=== PATIENT | male | born 2000 | race Caucasian/White ===

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

== ENCOUNTER 2019-02-19 14:19 | Emergency (ER) | payer OTHER ==
[~2019-02-19] VITALS: Ht 172.7 cm; Wt 94.5 kg
[2019-02-19 14:24] VITALS: BP 154/94
[2019-02-19 15:00] VITALS: BP 154/94
--- NOTE | 2019-02-19 15:05 | NUR ---
PT BIB SELF WITH C/O RT TOE INGROWN NAIL. PAIN TO TOUCH AND WALKING. PAIN 10/10 AT THIS TIME. PT STATES UNABLE TO WEAR SHOE. CMS PRESENT, CAN MOVE HIS FINGERS. NO REDNESDSS OR SWELLING AT THE SITE. DENIES ANY FEVER, CHILL, NAUSEA OR VOMITING. ER MD TO SEE THE PT. WILL CONTINUE TO MONITOR PT.
--- NOTE | 2019-02-19 16:20 | NUR ---
PATIENT LEFT WITHOUT BEING SEEN BY DR. HENRY. NO FURTHER CARE PROVIDED FOR PATIENT.
== END 2019-02-19 16:20 | disposition left against medical advice (07) ==
LOC: MED 14:19
DX: L60.0 Ingrowing nail (principal); Z53.21 Procedure and treatment not carried out due to patient leaving prior to being seen by health care provider